=== PATIENT | female | born 1985 | race Caucasian/White ===

== ENCOUNTER 2018-09-06 10:07 | Emergency (ER) | payer SELFPAY ==
--- NOTE | 2018-09-06 11:21 | RAD REPORT ---
EXAM DESCRIPTION: RAD - Foot Right 3 View - 09/06/2018 11:12 am CLINICAL HISTORY: PAIN Trauma, pain COMPARISON: No comparisons FINDINGS: No acute fracture or dislocation is seen. Soft tissue swelling is seen involving the dorsu m of the forefoot.
--- NOTE | 2018-09-06 11:35 | ER ---
Nurse's Notes [facility] Name: Anne Ybarra Age: 32 yrs Sex: Female : 1985 Arrival Date: 09/06/2018 Time: 10:08 Bed 20 Private MD: Diagnosis: Pain in right foot Presentation: 09/06 10:26 Presenting complaint: Patient states: Reports right foot pain after kicking wooden aj table today this AM. 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 Patient moving constantly and speaking erratically. Transition of care: patient was not received from another setting of care. Onset of symptoms was September 06, 2018. Risk Assessment: Do you want to hurt yourself or someone else? Patient reports no desire to harm self or others. Initial Sepsis Screen: Does the patient meet any 2 criteria? No. Patient's initial sepsis screen is negative. Does the patient have a suspected source of infection? No. Patient's initial sepsis screen is negative. Care prior to arrival: None. 10:26 Method Of Arrival: Ambulatory 10:26 Acuity: DIOGO 3 Triage Assessment: 10:28 General: Appears in no apparent distress. comfortable, Behavior is anxious. Pain: aj Complains of pain in right foot. Neuro: Level of Consciousness is awake, alert, obeys commands, Oriented to person, place, time, situation, Appropriate for age. Respiratory: Airway is patent Respiratory effort is even, unlabored, Respiratory pattern is regular, symmetrical. Derm: Skin is intact, is healthy with good turgor, Skin is pink, warm \T\ dry. normal. Musculoskeletal: Circulation, motion, and sensation intact. Swelling present in right foot. Injury Description:. 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 - Ebola Screening: : Patient negative for fever greater than or equal to 101.5 degrees Fahrenheit, and additional compatible Ebola Virus Disease symptoms Patient denies exposure to infectious person Patient denies travel to an Ebola-affected area in the 21 days before illness onset No symptoms or risks identified at this time. - Social history:: Smoking status: Patient uses tobacco products, unknown amount. Screenin:22 Abuse screen: Denies threats or abuse. Denies injuries from another. Nutritional bp screening: No deficits noted. Tuberculosis screening: No symptoms or risk factors identified. Fall Risk None identified. Assessment: 11:20 General: SEE TRIAGE NOTE. bp 11:41 Reassessment: PT ELOPE WITHOUT D/C PAPERS. AMBULATORY WITH STEADY GAIT, LAST SEEN IN bp STABLE CONDITION. Vital Signs: 10:28 BP 125 / 77; Pulse 86; Resp 19; Temp 97.9; Pulse Ox 99% on R/A; Weight 59.42 kg; Height aj 5 ft. 4 in. (162.56 cm); 10:28 Body Mass Index 22.49 (59.42 kg, 162.56 cm) ED Course: 10:08 Patient arrived in ED. ds1 10:27 Triage completed. aj 10:28 Arm band placed on right wrist. Patient placed in waiting room, Patient notified of wait time. X-ray ordered. 11:11 X-ray completed. Portable x-ray completed in exam room. Patient tolerated procedure 1 well. 11:14 XRAY Foot RIGHT 3 View In Process Unspecified. EDMS 11:18 Memo Calderon PA is PHCP. cp 11:18 Memo Jean MD is Attending Physician. cp 11:20 Jimi Lawrence, SHEBA is Primary Nurse. bp 11:22 Patient has correct armband on for positive identification. Placed in gown. Bed in low bp position. Call light in reach. Side rails up X2. Pulse ox on. NIBP on. 11:41 No provider procedures requiring assistance completed. Patient did not have IV access bp during this emergency room visit. intact, bleeding controlled, No redness/swelling at site. Pressure dressing applied. Administered Medications: 11:41 Not Given (Patient Eloped): Ibuprofen 800 mg PO once bp Outcome: 11:34 Discharge ordered by . cp 11:42 Eloped from patient exam room, after seeing physician Time discovered patient gone: bp September 06, 2018 at 11:42 11:42 Condition: stable 11:54 Patient left the ED. bp Signatures: Dispatcher [employer] EDMS Roxanne Goyal RN RN Christine Masters 1 Latisha Laura ds1 Memo Calderon PA PA cp Howard, Jimi, RN RN bp
--- NOTE | 2018-09-06 11:35 | EDPHYS ---
Physician Documentation [facility] Name: Anne Ybarra Age: 32 yrs Sex: Female : 1985 Arrival Date: 09/06/2018 Time: 10:08 Bed 20 Private MD: LORENA Physician Memo Jean HPI: 09/06 11:25 This 32 yrs old Female presents to ER via Ambulatory with complaints of Foot cp Injury. 11:25 The patient presents with pain, that is acute. The complaints affect the dorsum of cp right foot. 11:25 Context: The problem was sustained at home, resulted from mis-step and striking cp furniture, the patient can partially bear weight, the patient is able to ambulate, with moderate difficulty. 11:25 Onset: The symptoms/episode began/occurred this morning. Associated signs and symptoms: cp Pertinent positives: swelling, Pertinent negatives calf tenderness, numbness, rash, warmth, weakness. Treatment prior to arrival includes: no previous treatment. 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 - Ebola Screening: : Patient negative for fever greater than or equal to 101.5 degrees Fahrenheit, and additional compatible Ebola Virus Disease symptoms Patient denies exposure to infectious person Patient denies travel to an Ebola-affected area in the 21 days before illness onset No symptoms or risks identified at this time. - Social history:: Smoking status: Patient uses tobacco products, unknown amount. ROS: 11:30 ENT: Negative for injury, pain, and discharge. cp 11:30 Constitutional: Negative for body aches, chills, fever, poor PO intake. 11:30 Neck: Negative for pain with movement, pain at rest, stiffness. cp 11:30 Cardiovascular: Negative for chest pain, edema, palpitations. 11:30 Respiratory: Negative for cough, shortness of breath, wheezing. 11:30 Abdomen/GI: Negative for abdominal pain, nausea, vomiting, and diarrhea. 11:30 MS/extremity: Positive for pain, swelling, tenderness, of the dorsum of right foot, Negative for decreased range of motion, deformity, paresthesias. 11:30 Skin: Negative for rash. 11:30 All other systems are negative. Exam: 11:32 Constitutional: The patient appears in no acute distress, alert, awake, non-toxic, well cp developed, well nourished. 11:32 Head/Face: Normocephalic, atraumatic. cp 11:32 Musculoskeletal/extremity: Extremities: grossly normal except: noted in the dorsum of right foot: pain, swelling, tenderness, There is no evidence of decreased ROM, deformity, Perfusion: the extremity is normally perfused throughout, Sensation intact. 11:32 Skin: cellulitis, is not appreciated, no rash present. Vital Signs: 10:28 BP 125 / 77; Pulse 86; Resp 19; Temp 97.9; Pulse Ox 99% on R/A; Weight 59.42 kg; Height aj 5 ft. 4 in. (162.56 cm); 10:28 Body Mass Index 22.49 (59.42 kg, 162.56 cm) aj MDM: 11:19 Patient medically screened. davin 11:34 Data reviewed: vital signs, nurses notes, radiologic studies, plain films. cp 11:34 Test interpretation: by ED physician or midlevel provider: plain radiologic studies. cp Counseling: I had a detailed discussion with the patient and/or guardian regarding: the historical points, exam findings, and any diagnostic results supporting the discharge/admit diagnosis, radiology results, to return to the emergency department if symptoms worsen or persist or if there are any questions or concerns that arise at home. Response to treatment: the patient's symptoms have mildly improved after treatment, and as a result, I will discharge patient. 09/06 10:30 Order name: XRAY Foot RIGHT 3 View aj Administered Medications: 11:41 Not Given (Patient Eloped): Ibuprofen 800 mg PO once bp Disposition: 09/07 11:41 Co-signature as Attending Physician, Memo Jean MD I agree with the assessment and [facility] plan of care. Disposition: 09/06/18 11:34 Discharged to Home. Impression: Pain in right foot. - Condition is Stable. - Discharge Instructions: RICE for Routine Care of Injuries, Foot Pain. - Prescriptions for Ibuprofen 800 mg Oral Tablet - take 1 tablet by ORAL route every 8 hours As needed take with food; 30 tablet. - Medication Reconciliation Form, Thank You Letter, Antibiotic Education, Prescription Opioid Use form. - Follow up: Private Physician; When: 5 - 6 days; Reason: Worsening of condition. - Problem is new. - Symptoms have improved. Signatures: Dispatcher [employer] EDRoxanne Appiah, RN RN Memo Barragan MD MD cha Page, Corey, PA PA cp Jimi Lawrence, RN RN bp Corrections: (The following items were deleted from the chart) 09/06 11:40 11:33 Crutches ordered. cp bp 11:40 11:33 Lee wrap-joint ordered. cp bp 11:54 11:34 09/06/2018 11:34 Discharged to Home. Impression: Pain in right foot. Condition is bp Stable. Forms are Medication Reconciliation Form, Thank You Letter, Antibiotic Education, Prescription Opioid Use. Follow up: Private Physician; When: 5 - 6 days; Reason: Worsening of condition. Problem is new. Symptoms have improved. cp
[2018-09-06 17:49] VITALS: BP 125/77; TEMP 97.9; O2SAT 99
== END 2018-09-06 11:54 | disposition home or self-care (01) ==
LOC: ER 10:07
DX: M79.671 Pain in right foot (principal); Z91.040 Latex allergy status
CPT/HCPCS: 99283

== ENCOUNTER 2020-01-05 12:32 | Emergency (ER) | payer OTHER, SELFPAY ==
[2020-01-05] MEDS ORDERED: NA CHLORIDE 0.9% 0 ML ONE (13:19)
[2020-01-05] MEDS ORDERED: ONDANSETRON 4 MG/2 ML VIAL ONE (13:19)
[2020-01-05] MEDS ORDERED: CEFTRIAXONE/SWI 1gm 0 GM/0 ML SYR ONE (13:19)
[2020-01-05 13:47] LABS: Urine Blood 2+ (NEG); Urine Glucose NEGATIVE (NEG); Urine Protein 2+ (NEG); Urine pH 5.5 (5.0-7.0)
--- NOTE | 2020-01-05 14:37 | RAD REPORT ---
EXAM DESCRIPTION: RAD - Chest Single View - 01/05/2020 2:30 pm CLINICAL HISTORY: Congestion;Fever;Cough Chest pain. COMPARISON: CHEST SINGLE VIEW dated 06/23/2011 FINDINGS: Portable technique limits examination quality. The lungs are grossly clear. The heart is normal in size. No displaced fractures. IMPRESSION: No acute intrathoracic process suspected.
--- NOTE | 2020-01-05 15:16 | EDPHYS ---
Physician Documentation [facility] Name: Anne Ybarra Age: 34 yrs Sex: Female : 1985 Arrival Date: 01/05/2020 Time: 12:33 Bed 18 Private MD: LORENA Physician Memo Jean HPI: 01/04 12:55 This 34 yrs old Female presents to ER via Ambulatory with complaints of davin Abdominal Pain, Nausea/Vomiting, Fever. 12:55 The patient presents to the emergency department with nausea, vomiting. Onset: The davin symptoms/episode began/occurred 2 day(s) ago. Possible causes: unknown. The symptoms are aggravated by nothing. The symptoms are alleviated by nothing. Associated signs and symptoms: Pertinent positives: fever. Severity of symptoms: At their worst the symptoms were mild in the emergency department the symptoms are unchanged. The patient has experienced similar episodes in the past, several times. Historical: - Allergies: 12:47 Latex, Natural Rubber; jd3 12:47 Macrobid; jd3 - Home Meds: 12:47 None [Active]; jd3 - PMHx: 12:47 chronic kidney infections; jd3 - PSHx: 12:47 Hysterectomy; jd3 - Immunization history:: Adult Immunizations up to date. - Social history:: Smoking status: unknown. ROS: 12:56 Constitutional: Negative for fever, chills, and weight loss, Eyes: Negative for injury, davin pain, redness, and discharge, Neck: Negative for injury, pain, and swelling, Cardiovascular: Negative for chest pain, palpitations, and edema, Abdomen/GI: Negative for abdominal pain, nausea, vomiting, diarrhea, and constipation, Back: Negative for injury and pain, : Negative for injury, bleeding, discharge, and swelling, MS/Extremity: Negative for injury and deformity, Skin: Negative for injury, rash, and discoloration, Neuro: Negative for headache, weakness, numbness, tingling, and seizure, Psych: Negative for depression, anxiety, suicide ideation, homicidal ideation, and hallucinations, Allergy/Immunology: Negative for hives, rash, and allergies, Endocrine: Negative for neck swelling, polydipsia, polyuria, polyphagia, and marked weight changes, Hematologic/Lymphatic: Negative for swollen nodes, abnormal bleeding, and unusual bruising. 12:56 ENT: Positive for rhinorrhea, sore throat. 12:56 Respiratory: Positive for cough. Exam: 12:56 Constitutional: This is a well developed, well nourished patient who is awake, alert, davin and in no acute distress. Head/Face: Normocephalic, atraumatic. Eyes: Pupils equal round and reactive to light, extra-ocular motions intact. Lids and lashes normal. Conjunctiva and sclera are non-icteric and not injected. Cornea within normal limits. Periorbital areas with no swelling, redness, or edema. Neck: Trachea midline, no thyromegaly or masses palpated, and no cervical lymphadenopathy. Supple, full range of motion without nuchal rigidity, or vertebral point tenderness. No Meningismus. Chest/axilla: Normal chest wall appearance and motion. Nontender with no deformity. No lesions are appreciated. Cardiovascular: Regular rate and rhythm with a normal S1 and S2. No gallops, murmurs, or rubs. Normal PMI, no JVD. No pulse deficits. Respiratory: Lungs have equal breath sounds bilaterally, clear to auscultation and percussion. No rales, rhonchi or wheezes noted. No increased work of breathing, no retractions or nasal flaring. Abdomen/GI: Soft, non-tender, with normal bowel sounds. No distension or tympany. No guarding or rebound. No evidence of tenderness throughout. Back: No spinal tenderness. No costovertebral tenderness. Full range of motion. Skin: Warm, dry with normal turgor. Normal color with no rashes, no lesions, and no evidence of cellulitis. MS/ Extremity: Pulses equal, no cyanosis. Neurovascular intact. Full, normal range of motion. Neuro: Awake and alert, GCS 15, oriented to person, place, time, and situation. Cranial nerves II-XII grossly intact. Motor strength 5/5 in all extremities. Sensory grossly intact. Cerebellar exam normal. Normal gait. Psych: Awake, alert, with orientation to person, place and time. Behavior, mood, and affect are within normal limits. 12:56 ENT: Posterior pharynx: Tonsils: are normal in appearance, Uvula: normal, midline, swelling, that is mild, erythema, that is mild, exudate, is not appreciated, peritonsillar mass, is not appreciated. 12:56 Neck: ROM/movement: is normal, no acute changes, Meningeal signs: are not present, Kernig's sign is negative, Brudzinski's sign is negative. Vital Signs: 12:47 BP 131 / 65; Pulse 94; Resp 17 S; Temp 98.3(O); Pulse Ox 100% on R/A; Weight 57.61 kg jd3 (R); Height 5 ft. 4 in. (162.56 cm) (R); Pain 7/10; 14:54 BP 112 / 69; Pulse 70; Resp 15; Temp 98.1(O); Pulse Ox 100% on R/A; mh5 12:47 Body Mass Index 21.80 (57.61 kg, 162.56 cm) jd3 MDM: 12:36 Patient medically screened. davin 13:01 Antibiotic administration: Not indicated. Differential diagnosis: gastritis. Data davin reviewed: vital signs, nurses notes, lab test result(s), radiologic studies, plain films. Data interpreted: nurse monitoring: rate is 94 beats/min, rhythm is regular, Pulse oximetry: on room air is 100 %. Test interpretation: by ED physician or midlevel provider: plain radiologic studies. Counseling: I had a detailed discussion with the patient and/or guardian regarding: the historical points, exam findings, and any diagnostic results supporting the discharge/admit diagnosis, lab results, radiology results. 01/04 12:55 Order name: Urine Culture [facility] 01/04 12:55 Order name: Flu; Complete Time: 14:18 [facility] 01/04 12:55 Order name: COVID-19 [facility] 01/04 12:55 Order name: Strep; Complete Time: 13:51 [facility] 01/04 12:55 Order name: Urine Dipstick-Ancillary (obtain specimen); Complete Time: 15:28 [facility] 01/04 12:55 Order name: Chest Single View XRAY; Complete Time: 15:01 davin 01/04 13:31 Order name: Urine Dipstick--Ancillary (enter results); Complete Time: 13:48 eb 01/04 13:31 Order name: Urine --Ancillary (enter results); Complete Time: 13:48 eb 01/04 13:51 Order name: Throat Culture [facility] 01/04 12:55 Order name: Urine Test (obtain specimen); Complete Time: 15:17 davin 01/04 15:16 Order name: PO challenge; Complete Time: 19:23 [facility] Administered Medications: 15:17 Not Given ( cancelled): NS 0.9% 1000 ml IV at 1 bolus Per protocol; 1000 mL bolus ah 15:17 Not Given ( cancelled): Rocephin 1 grams IV at per protocol once; Given slow IV push ah per pharmacy instructions 19:23 Not Given ( cancelled): Zofran (Ondansetron) 4 mg IVP once; over 2 minutes ah Disposition: 01/05/20 15:16 Discharged to Home. Impression: Vomiting, Acute upper respiratory infection, unspecified, Anxiety disorder, unspecified. - Condition is Stable. - Discharge Instructions: Fever, Adult, Upper Respiratory Infection, Adult, Cool Mist Vaporizer, Nausea and Vomiting, Adult, Ztnk-pv-Ciow, Upper Respiratory Infection, Adult, Uggw-eh-Gust, Cough, Adult, Fever, Adult, Jiao-co-Bwsa. - Prescriptions for Amoxicillin 500 mg Oral Capsule - take 1 capsule by ORAL route every 8 hours for 10 days; 30 tablet. Zofran 4 mg Oral Tablet - take 1 tablet by ORAL route every 12 hours As needed; 20 tablet. - Medication Reconciliation Form, Thank You Letter, Antibiotic Education, Prescription Opioid Use form. - Follow up: Private Physician; When: 2 - 3 days; Reason: Recheck today's complaints, Continuance of care, Re-evaluation by your physician. - Problem is new. - Symptoms have improved. Signatures: Dispatcher [employer] EDMS Memo Jean MD MD cha Davies, Jonathon, RN RN jd3 Harris, Amy, RN RN ah Corrections: (The following items were deleted from the chart) 15:18 12:56 CBC+H.LAB.BRZ ordered. [facility] EDMS 15:18 12:56 COMPREHENSIVE METABOLIC PANEL+C.LAB.BRZ ordered. [facility] EDMS 15:54 15:16 01/05/2020 15:16 Discharged to Home. Impression: Vomiting; Acute upper ah respiratory infection, unspecified; Anxiety disorder, unspecified. Condition is Stable. Discharge Instructions: Upper Respiratory Infection, Adult, Cool Mist Vaporizer, Nausea and Vomiting, Adult, Sqyu-tm-[id number], Upper Respiratory Infection, Adult, Ijrr-iv-Olln, Cough, Adult, Fever, Adult, Fever, Adult, Gcno-tu-Wzaa. Prescriptions for Amoxicillin 500 mg Oral Capsule - take 1 capsule by ORAL route every 8 hours for 10 days; 30 tablet, Zofran 4 mg Oral Tablet - take 1 tablet by ORAL route every 12 hours As needed; 20 tablet. and Forms are Medication Reconciliation Form, Thank You Letter, Antibiotic Education, Prescription Opioid Use. Follow up: Private Physician; When: 2 - 3 days; Reason: Recheck today's complaints, Continuance of care, Re-evaluation by your physician. Problem is new. Symptoms have improved. davin
--- NOTE | 2020-01-05 15:16 | ER ---
Nurse's Notes [facility] Name: Anne Ybarra Age: 34 yrs Sex: Female : 1985 Arrival Date: 01/05/2020 Time: 12:33 Bed 18 Private MD: Diagnosis: Vomiting;Acute upper respiratory infection, unspecified;Anxiety disorder, unspecified Presentation: 01/04 12:43 Chief complaint: Patient states: "I moved to [place] yesterday so I thought it was the [facility] climate change, but today I have had this migraine I can't get rid of, I lost my voice. I am also having this nausea and my stomach just feels yucky and my anxiety is just making everything worse because I just have a lot going on right now with my family being sick all this stuff.". Coronavirus screen: fatigue, headache, nausea, sore throat, Client presents with at least one sign or symptom that may indicate coronavirus-19. Ebola Screen: Patient negative for fever greater than or equal to 101.5 degrees Fahrenheit, and additional compatible Ebola Virus Disease symptoms. Initial Sepsis Screen: Does the patient meet any 2 criteria? No. Patient's initial sepsis screen is negative. Does the patient have a suspected source of infection? No. Patient's initial sepsis screen is negative. Risk Assessment: Do you want to hurt yourself or someone else? Patient reports no desire to harm self or others. Onset of symptoms was January 05, 2020. 12:43 Method Of Arrival: Ambulatory j 12:43 Acuity: DIOGO 3 jd3 Historical: - Allergies: 12:47 Latex, Natural Rubber; jd3 12:47 Macrobid; jd3 - Home Meds: 12:47 None [Active]; jd3 - PMHx: 12:47 chronic kidney infections; jd3 - PSHx: 12:47 Hysterectomy; jd3 - Immunization history:: Adult Immunizations up to date. - Social history:: Smoking status: unknown. Screenin:52 Abuse screen: Denies threats or abuse. Nutritional screening: No deficits noted. Tuberculosis screening: No symptoms or risk factors identified. Fall Risk None identified. Assessment: 12:50 General: Appears uncomfortable, Behavior is cooperative, anxious, crying. Pain: Complains of pain in abdomen. Neuro: Level of Consciousness is awake, alert, obeys commands, Oriented to person, place, time, situation. Neuro: Reports headache. Cardiovascular: Capillary refill < 3 seconds Patient's skin is warm and dry. Respiratory: Airway is patent Respiratory effort is even, unlabored, Respiratory pattern is regular, symmetrical. GI: Reports nausea, vomiting. GI: Bowel sounds present X 4 quads. Abd is non tender. : No signs and/or symptoms were reported regarding the genitourinary system. Derm: Skin is intact, is healthy with good turgor. 14:45 Reassessment: Patient is alert, oriented x 3, equal unlabored respirations, skin aa5 warm/dry/pink. 15:00 Reassessment: Pt is hard stick, MD was notified. . aa5 Vital Signs: 12:47 BP 131 / 65; Pulse 94; Resp 17 S; Temp 98.3(O); Pulse Ox 100% on R/A; Weight 57.61 kg jd3 (R); Height 5 ft. 4 in. (162.56 cm) (R); Pain 7/10; 14:54 BP 112 / 69; Pulse 70; Resp 15; Temp 98.1(O); Pulse Ox 100% on R/A; mh5 12:47 Body Mass Index 21.80 (57.61 kg, 162.56 cm) jd3 ED Course: 12:33 Patient arrived in ED. ag5 12:35 Memo Jean MD is Attending Physician. davin 12:37 Sasha King, RN is Primary Nurse. 12:46 Triage completed. jd3 12:47 Arm band placed on. jd3 12:50 Missed attempt(s): 20 gauge in right antecubital area. 22 gauge in left hand. mh5 14:30 Chest Single View XRAY In Process Unspecified. EDMS 14:40 Missed attempt(s): 24 gauge in left forearm. Bleeding controlled, band aid applied, aa5 catheter tip intact. 14:45 Missed attempt(s): 24 gauge in left hand. Bleeding controlled, band aid applied, aa5 catheter tip intact. 14:53 Patient has correct armband on for positive identification. Placed in gown. Bed in low mh5 position. Call light in reach. Side rails up X 1. Adult w/ patient. Warm blanket given. Pulse ox on. NIBP on. 15:00 No provider procedures requiring assistance completed. Patient did not have IV access during this emergency room visit. Administered Medications: 15:17 Not Given ( cancelled): NS 0.9% 1000 ml IV at 1 bolus Per protocol; 1000 mL bolus ah 15:17 Not Given ( cancelled): Rocephin 1 grams IV at per protocol once; Given slow IV push per pharmacy instructions 19:23 Not Given ( cancelled): Zofran (Ondansetron) 4 mg IVP once; over 2 minutes Outcome: 15:16 Discharge ordered by . davin 15:20 Discharged to home ambulatory. 15:20 Condition: good 15:20 Discharge instructions given to patient, Instructed on discharge instructions, follow up and referral plans. Demonstrated understanding of instructions, follow-up care, medications, Prescriptions given X 2. 15:54 Patient left the ED. Addendum: 01/08/2020 13:28 Addendum: COVID-19 Result: Negative result given to RN to notify pt. Attempted to i w contact pt regarding negative COVID-19 swab results. Other: phone number is wrong number. Signatures: Dispatcher [employer] EDMemo Lemus MD MD cha Williams, Irene, RN RN iw Calderon, Audri RN RN latoya5 Emiliana Shelton 5 Dwayne Elizabeth RN RN jd3 Gaskin, Ajare ag5 Sasha King RN RN
[2020-01-05 16:12] VITALS: O2SAT 100
[2020-01-05 16:13] VITALS: BP 112/69; TEMP 98.1
--- OUTSIDE RECORDS SUMMARY | 2020-01-09 00:43 | XMS REPORT | Summary of Care ---
:1985 Author Organization [facility] Address [address] [place] [address] Care Team Providers Name Role Phone Miguel Gallo MD Primary Care Provider Reason for Visit Reason Comments Rx Concern/Question Encounter Details Date Type Department Care Team Description 11/13/2019 Telephone [facility] Family Rosa Gallo MD Rx Concern/Question Medicine - [address] [place] [phone] Allergies Active Allergy Reactions Severity Noted Date Comments Latex Rash 11/21/2018 documented as of this encounter (statuses as of 11/13/2019) Medications Medication Sig Dispensed Refills Start Date End Date Status metoprolol succinate Take 1 tablet by 30 tablet 5 01/21/2019 Active XL 25 mg 24 hr mouth daily. tabletIndications: Anxiety ondansetron 4 mg Take 1 tablet by 20 tablet 0 06/12/2019 Active tabletIndications: mouth every 6 Kidney stone (six) hours as needed for Nausea and Vomiting (N/V). HYDROcodone-acetaminop Take 1 tablet by 30 tablet 0 06/12/2019 Active hen 5-325 mg mouth every 6 tabletIndications: (six) hours as Kidney stone needed for Pain (scale 4-6). cefUROXime 500 mg Take 1 tablet by 20 tablet 0 08/22/2019 Active tabletIndications: mouth 2 (two) Kidney stone times daily. ALPRAZolam 2 mg Take 1 tablet by 90 tablet 1 09/16/2019 Active tabletIndications: mouth 3 (three) Anxiety times daily as needed for Sleep. 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 Cocaine dependence, episodic 11/05/2006 Cannabis dependence, continuous 11/05/2006 Overview: Daily use Suicidal ideation 11/05/2006 documented as of this encounter (statuses as of 11/13/2019) Social History Tobacco Use Types Packs/Day Years Used Date Current Every Day Smoker Smokeless Tobacco: Never Used Alcohol Use Drinks/Week oz/Week Comments Yes Sex Assigned at Date Recorded Not on file documented as of this encounter Last Filed Vital Signs Not on filedocumented in this encounter Miscellaneous Notes Telephone Encounter - Tiffanie Lin LVN - 11/13/2019 4:40 PM CDTCalled patient no answer left message for her to call me back tomorrow. elephone Encounter - Tiffanie Lin LVN - 11/13/2019 8:49 AM CDTLeft message on patient voicemail to callback with [facility] location. elephone Encounter - Miguel Gallo MD - 11/13/2019 8:33 AM CDT [facility] where? elephone Encounter - Tiffanie Lin LVN - 11/13/2019 8:25 AM CDT HYDROcodone-acetaminophen 5-325 mg tablet 30 tablet 0 06/12/2019 [facility] [address] [place] [address] T H APPOINTMENT 08/22/2019 elephone Encounter - Janet Leos - 11/13/2019 7:52 AM CDT Patient is calling and is requesting for her medication to be sent to [facility], please call patient back in regards to this encounter, patient stated she is going out of town and for a deathin the family and is requesting to get this done before she is having to leave. documented in this encounter Plan of Treatment Health Maintenance Due Date Last Done Comments VARICELLA VACCINES (1 of 2 - 2-dose 10/28/1987 childhood series) PNEUMOCOCCAL 0-64 YEARS COMBINED SERIES (1 1992 of 1 - PPSV23) DTaP,Tdap,and Td Vaccines (1 - Tdap) 2005 PAP SMEAR 10/28/2007 Depression Screening 11/22/2019 11/21/2018, 11/21/2018 INFLUENZA VACCINE (#1) 2019 documented as of this encounter Results Not on filedocumented in this encounter Visit Diagnoses Diagnosis Kidney stone Calculus of kidney documented in this encounter
--- OUTSIDE RECORDS SUMMARY | 2020-01-09 00:43 | XMS REPORT | Summary of Care ---
:1985 Author Organization [facility] Address [address] [place] [address] Care Team Providers Name Role Phone Miguel Gallo MD Primary Care Provider Reason for Visit Reason Comments Rx Concern/Question Encounter Details Date Type Department Care Team Description 11/13/2019 Telephone [facility] Family Rosa Gallo MD Rx Concern/Question Medicine - [address] [place] [phone] Allergies Active Allergy Reactions Severity Noted Date [...] R/O Bipolar d/o, MDD ICD10 Diagnosis 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 elephone Encounter - Tiffanie Lin LVN - 11/13/2019 8:25 AM CDT HYDROcodone-acetaminophen 5-325 mg tablet 30 tablet 0 06/12/2019 [facility] [address] [place] [address] T H APPOINTMENT 08/22/2019 elephone Encounter - [...]
--- OUTSIDE RECORDS SUMMARY | 2020-01-09 00:43 | XMS REPORT | Summary of Care ---
:1985 Author Organization [facility] Address [address] [place] [address] Care Team Providers Name Role Phone Miguel Gallo MD Primary Care Provider Reason for Visit Reason Comments Rx Concern/Question Encounter Details Date Type Department Care Team Description 11/13/2019 Telephone [facility] Family Rosa Gallo MD Rx Concern/Question Medicine - [address] [place] [address] [phone] Allergies Active Allergy Reactions Severity Noted Date [...] R/O Bipolar d/o, MDD ICD10 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 elephone Encounter - Tiffanie Lin LVN - 11/13/2019 8:25 AM CDT HYDROcodone-acetaminophen 5-325 mg tablet 30 tablet 0 06/12/2019 [facility] [address] [place] [address] T H APPOINTMENT 08/22/2019 elephone Encounter - [...]
--- OUTSIDE RECORDS SUMMARY | 2020-01-09 00:43 | XMS REPORT | Continuity of Care Document ---
:1985 Author Organization [facility] t Address [address] [place] [address] Care Team Providers Name Role Phone Sabino MISHRA Attending Clinician Payers Payer Name Policy Type Policy Number Effective Date Expiration Date S ource Problems This patient has no known problems. Allergies, Adverse Reactions, Alerts Allergy Allergy Status Severity Reaction(s) Onset Inactive Treating Comm ents Source Name Type Date Date Clinician No Known DA Active U 2016-04 CIARAN Allergie 0-17 Pearlan s 00:00: d 00 [facility] Medications This patient has no known medications. Procedures This patient has no known procedures. Encounters Start End Encounter Admission Attending Care Care Encounter Source Date/Time Date/Time Type Type Clinicians Facility Department ID 2019-12-10 2019-12-10 [facility] [id number] 00:00:00 00:00:00 [place] [id number] [place] [id number] Jennifer [id number] nal [address] 2019-12-03 2019-12-03 [facility] [id number] 00:00:00 00:00:00 [facility] [id number] [place] [id number] Jennifer [id number] nal [address] 2019-11-19 2019-11-19 Emergency E MHBL MHBL [id number] MHBL 03:02:00 03:02:00 2019-09-21 2019-09-21 Emergency E MHBL MHBL [id number] MHBL 15:36:00 15:36:00 2019-06-13 2019-06-13 Emergency E [facility]BL MHBL [id number] MHBL 17:05:00 17:05:00 2019-06-09 2019-06-09 Outpatient E MHSE MED [id number] MH 11:31:00 [facility]:31:[facility] 2019-06-05 2019-06-05 Emergency E MHBL MHBL [id number] MHBL 01:07:00 01:07:00 Results This patient has no known results.
--- OUTSIDE RECORDS SUMMARY | 2020-01-09 00:44 | XMS REPORT | Summary of Care ---
:1985 Author Organization [facility] Address [address] [place] [address] Care Team Providers Name Role Phone Miguel Gallo MD Primary Care Provider Reason for Visit Reason Comments Rx Concern/Question Encounter Details Date Type Department Care Team Description 12/03/2019 Telephone [facility] Family Rosa Gallo MD Rx Concern/Question Medicine - [address] [place] [phone] [phone] Allergies Active Allergy Reactions Severity Noted Date Comments Latex Rash 11/21/2018 documented as of this encounter (statuses as of 12/03/2019) Medications Medication Sig Dispensed Refills Start Date [...] Take 1 tablet by 90 tablet 1 11/26/2019 Active tabletIndications: mouth 3 (three) Anxiety times daily as needed for Sleep. 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 Cocaine dependence, episodic 11/05/2006 Cannabis dependence, continuous 11/05/2006 Overview: Daily use Suicidal ideation 11/05/2006 documented as of this encounter (statuses as of 12/03/2019) Social History Tobacco Use Types Packs/Day Years Used Date Current Every Day Smoker Smokeless Tobacco: Never Used Alcohol Use Drinks/Week oz/Week Comments Yes Sex Assigned at Date Recorded Not on file documented as of this encounter Last Filed Vital Signs Not on filedocumented in this encounter Miscellaneous Notes Telephone Encounter - Tiffanie Lin LVN - 12/03/2019 3:05 PM CDTNotified patient that the medication has been sent out on 11/26/[address] [facility], she will call them. Telephone Encounter - Janet Leos - 12/03/2019 2:49 PM CDTPatient is calling and is requesting an update on encounter from 11/27, please call patient back in regards to this encounter. documented in this encounter Plan of Treatment Health Maintenance Due Date Last Done Comments VARICELLA VACCINES (1 of 2 - 2-dose childhood series) 10/28/1987 PNEUMOCOCCAL 0-64 YEARS COMBINED SERIES (1 of 1 - 1992 PPSV23) Depression Screening 1998 DTaP,Tdap,and Td Vaccines (1 - Tdap) 2005 PAP SMEAR 10/28/2007 INFLUENZA VACCINE (#1) 2019 documented as of this encounter Results Not on filedocumented in this encounter
--- OUTSIDE RECORDS SUMMARY | 2020-01-09 00:44 | XMS REPORT | Summary of Care ---
:1985 Author Organization [facility] Address [address] [place] [address] Care Team Providers Name Role Phone Miguel Gallo MD Primary Care Provider Reason for Visit Reason Comments Rx Concern/Question Encounter Details Date Type Department Care Team Description 11/13/2019 Telephone [facility] Family Rosa Gallo MD Rx Concern/Question Medicine - [address] [place] [phone] [phone] Allergies Active Allergy Reactions Severity Noted Date Comments Latex Rash 11/21/2018 documented as of this encounter (statuses as of 11/14/2019) Medications Medication Sig Dispensed Refills Start Date [...] as of this encounter (statuses as of 11/14/2019) Active Problems Problem Noted Date Bilateral flank pain 06/11/2019 Dysuria 06/11/2019 Dark brown-colored urine 06/11/2019 Hematuria, unspecified type 06/11/2019 Depressive disorder 11/05/2006 Overview: 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, but R/O Bipolar d/o, MDD ICD10 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 Cocaine dependence, episodic 11/05/2006 Cannabis dependence, continuous 11/05/2006 Overview: Daily use Suicidal ideation 11/05/2006 documented as of this encounter (statuses as of 11/14/2019) Social History Tobacco Use Types Packs/Day Years Used Date Current Every Day Smoker Smokeless Tobacco: Never Used Alcohol Use Drinks/Week oz/Week Comments Yes Sex Assigned at Date Recorded Not on file documented as of this encounter Last Filed Vital Signs Not on filedocumented in this encounter Miscellaneous Notes Telephone Encounter - Tiffanie Lin LVN - 11/14/2019 3:10 PM CDTI called the patient again, phone goes directly to voicemail. She has not returned my calls from yesterday therefore I am closing this encounter until she calls back, needed to know what [facility] location she was wanting medication sent to. elephone Encounter - Tiffanie Lin LVN - [...] 5-325 mg tablet 30 tablet 0 06/12/[facility] [address] [place] [address] T H APPOINTMENT 08/22/2019 elephone Encounter - [...]
--- OUTSIDE RECORDS SUMMARY | 2020-01-09 00:44 | XMS REPORT | Summary of Care ---
:1985 Author Organization [facility] Address [address] [place] [address] Care Team Providers Name Role Phone Miguel Gallo MD Primary Care Provider Reason for Visit Reason Comments Refill Request refill for medication Encounter Details Date Type Department Care Team Description 11/28/2019 Telephone [facility] Pediatric Junie Gallo MD Refill Request (refill and Adult Primary [address] for medication) Care- [place] [phone], [address] [place] [address] Allergies Active Allergy Reactions Severity Noted Date Comments Latex Rash 11/21/2018 documented as of this encounter (statuses as of 11/29/2019) Medications Medication Sig Dispensed Refills Start Date [...] as of this encounter (statuses as of 11/29/2019) Active Problems Problem Noted Date Bilateral flank pain 06/11/2019 Dysuria 06/11/2019 Dark brown-colored urine 06/11/2019 Hematuria, unspecified type 06/11/2019 Depressive disorder 11/05/2006 Overview: 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, but R/O Bipolar d/o, MDD ICD10 Diagnosis 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 Telephone Encounter - Mitchell Suarez - 11/28/2019 9:40 AM CDTAnne Ybarra is a 34 year old female Patient requesting refill on following medication ALPRAZolam 2 mg tablet [facility] [address] [place], [place] [phone] Please assist documented in this encounter Plan of Treatment [...]
--- OUTSIDE RECORDS SUMMARY | 2020-01-09 00:44 | XMS REPORT | Summary of Care ---
:1985 Author Organization [facility] Address [address] [place] [address] Care Team Providers Name Role Phone Miguel Gallo MD Primary Care Provider Reason for Visit Reason Comments Refill Request Encounter Details Date Type Department Care Team Description 11/26/2019 Refill [facility] Miguel Max MD Refill Request - [address] [place] [address] [place] [address] [phone] Allergies Active Allergy Reactions Severity Noted Date Comments Latex Rash 11/21/2018 documented as of this encounter (statuses as of 11/26/2019) Medications Medication Sig Dispensed Refills Start Date End Date Status metoprolol Take 1 tablet 30 tablet 5 01/21/2019 Acti ve succinate XL 25 by mouth mg 24 hr daily. tabletIndications : Anxiety ondansetron 4 mg Take 1 tablet 20 tablet 0 06/12/2019 Active tabletIndications by mouth every : Kidney stone 6 (six) hours as needed for Nausea and Vomiting (N/V). HYDROcodone-aceta Take 1 tablet 30 tablet 0 06/12/2019 Active minophen 5-325 mg by mouth every tabletIndications 6 (six) hours : Kidney stone as needed for Pain (scale 4-6). cefUROXime 500 mg Take 1 tablet 20 tablet 0 08/22/2019 Active tabletIndications by mouth 2 : Kidney stone (two) times daily. ALPRAZolam 2 mg Take 1 tablet 90 tablet 1 11/26/2019 Active tabletIndications by mouth 3 : Anxiety (three) times daily as needed for Sleep. ALPRAZolam 2 mg Take 1 tablet 90 tablet 1 09/16/2019 Discontinued tabletIndications by mouth 3 0 ( Reorder) : Anxiety (three) times daily as needed for Sleep. 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 Cocaine dependence, episodic 11/05/2006 Cannabis dependence, continuous 11/05/2006 Overview: Daily use Suicidal ideation 11/05/2006 documented as of this encounter (statuses as of 11/26/2019) Social History Tobacco Use Types Packs/Day Years Used Date Current Every Day Smoker Smokeless Tobacco: Never Used Alcohol Use Drinks/Week oz/Week Comments Yes Sex Assigned at Date Recorded Not on file documented as of this encounter Last Filed Vital Signs Not on filedocumented in this encounter Miscellaneous Notes Telephone Encounter - Tiffanie Lin LVN - 11/26/2019 2:08 PM CDT 2 months ago (09/16/2019) ALPRAZolam [address] [facility] [address] [place] [address] T H APPOINTMENT 08/22/2019 elephone Encounter - Mar De Dios - 11/26/2019 1:47 PM CDTPt is requesting medication one week early. documented in this encounter Plan of Treatment [...] filedocumented in this encounter Visit Diagnoses Diagnosis Anxiety Anxiety state, unspecified documented in this encounter
--- OUTSIDE RECORDS SUMMARY | 2020-01-09 00:44 | XMS REPORT | Summary of Care ---
:1985 Author Organization [facility] Address [address] [place] [address] Care Team Providers Name Role Phone Miguel Gallo MD Primary Care Provider Reason for Visit Reason Comments Refill Request refill for medication Encounter Details Date Type Department Care Team Description 11/28/2019 Telephone [facility] Pediatric Junie Gallo MD Refill Request (refill and Adult Primary [address] for medication) Care- [place] [phone], [address] [place] [address] Allergies Active Allergy Reactions Severity [...] R/O Bipolar d/o, MDD ICD10 Diagnosis 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 elephone Encounter - Paige Vazquez MA - 11/29/2019 8:49 AM CDTRerouting. Telephone Encounter - Mitchell Suarez - 11/28/2019 9:40 AM CDTAnne Ybarra is a 34 year old female Patient requesting refill on following medication ALPRAZolam 2 mg tablet [facility] [address] [place], [place] [phone] Please assist documented in this encounter Plan [...]
--- OUTSIDE RECORDS SUMMARY | 2020-01-09 00:44 | XMS REPORT | Summary of Care ---
:1985 Author Organization [facility] Address [address] [place] [address] Care Team Providers Name Role Phone Miguel Gallo MD Primary Care Provider Reason for Visit Reason Comments Refill Request refill for medication Encounter Details Date Type Department Care Team Description 11/28/2019 Refill [facility] Pediatric Junie Gallo MD Refill Request (refill and Adult Primary Care- [facility] [address] for medication) [place] [address], [address] [place] [address] [phone] Allergies Active Allergy Reactions Severity Noted Date [...] R/O Bipolar d/o, MDD ICD10 Diagnosis 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 Patient is requesting this medication to [facility] in [place]. elephone Encounter - Tiffanie Lin LVN - 11/29/2019 10:00 AM CDTCalled the pharmacy and they received the refill on 11/26/2019 but it is too soon to refill, she is currently on day 16 of a 30 day script. elephone Encounter - Paige Vazquez MA - 11/29/2019 8:49 AM CDTRerouting. Telephone Encounter - Mitchell Suarez - 11/28/2019 9:40 AM CDTAnne Amada is a 34 year old female Patient requesting refill on following medication ALPRAZolam 2 mg tablet [place] [phone] Please assist documented in this encounter Plan [...]
--- OUTSIDE RECORDS SUMMARY | 2020-01-09 00:45 | XMS REPORT | Summary of Care ---
:1985 Author Organization [facility] Address [address] [place] [address] Care Team Providers Name Role Phone Miguel Gallo MD Primary Care Provider Reason for Visit Reason Comments Rx Concern/Question Encounter Details Date Type Department Care Team Description 12/03/2019 Telephone [facility] Family Rosa Gallo MD Rx Concern/Question Medicine - [address] [place] [phone] Allergies Active Allergy Reactions Severity Noted Date Comments Latex Rash 11/21/2018 documented as of this encounter (statuses as of 12/04/2019) Medications Medication Sig Dispensed Refills Start Date [...] as of this encounter (statuses as of 12/04/2019) Active Problems Problem Noted Date Bilateral flank pain 06/11/2019 Dysuria 06/11/2019 Dark brown-colored urine 06/11/2019 Hematuria, unspecified type 06/11/2019 Depressive disorder 11/05/2006 Overview: 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, but R/O Bipolar d/o, MDD ICD10 Diagnosis 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 Cocaine dependence, episodic 11/05/2006 Cannabis dependence, continuous 11/05/2006 Overview: Daily use Suicidal ideation 11/05/2006 documented as of this encounter (statuses as of 12/04/2019) Social History Tobacco Use Types Packs/Day Years Used Date Current Every Day Smoker Smokeless Tobacco: Never Used Alcohol Use Drinks/Week oz/Week Comments Yes Sex Assigned at Date Recorded Not on file documented as of this encounter Last Filed Vital Signs Not on filedocumented in this encounter Miscellaneous Notes Telephone Encounter - Tiffanie Lin LVN - 12/04/2019 10:46 AM CDTPatient notified and verbalized understanding. elephone Encounter - Tiffanie Lin LVN - 12/04/2019 9:17 AM CDTCalled patient to advise cannot refill until next week, there was no answer, will try again. elephone Encounter - Miguel Gallo MD - 12/04/2019 7:15 AM CDTCannot refill till next week Telephone Encounter - Tiffanie Lin LVN - 12/03/2019 3:46 PM CDTThe last refill on the Alprazolam was on 11/13/2019 with a 30 day supply, the next refill is not due until 12/14/2019. She says that Dr Gallo approved an early refill on 11/26/2019 and that [facility] will not fill it so she wants it sent to [facility] [place] instead they told her they will fill it. Please advise. elephone Encounter - Laure Cooper - 12/03/2019 3:11 PM CDTPatient is calling stating that [facility] will not fill her medication that was on 11/26/19, but is stating that [facility] in [place] will fill the medication. Patient is requesting for the medication to be sent as soon as possible. documented in this encounter Plan of Treatment [...]
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
--- OUTSIDE RECORDS SUMMARY | 2020-01-09 00:45 | XMS REPORT | Summary of Care ---
:1985 Author Organization [facility] Address [address] [place] [address] Care Team Providers Name Role Phone Miguel Gallo MD Primary Care Provider Reason for Visit Reason Comments Rx Concern/Question Encounter Details Date Type Department Care Team Description 12/03/2019 Telephone [facility] Family Rosa Gallo MD Rx Concern/Question Medicine - [address] [place] [phone] Allergies Active Allergy Reactions Severity Noted Date [...] R/O Bipolar d/o, MDD ICD10 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 Please advise. elephone Encounter - Laure Cooper - 12/03/2019 3:11 PM CDTPatient is calling stating that [facility] will not fill her medication that was on 11/26/19, but is stating that [facility] in [place] will fill the medication. Patient is requesting [...]
== END 2020-01-05 15:54 | disposition home or self-care (01) ==
LOC: ER 12:32
DX: J06.9 Acute upper respiratory infection, unspecified (principal); Z20.828 Contact with and (suspected) exposure to other viral communicable diseases; F41.9 Anxiety disorder, unspecified; Z88.1 Allergy status to other antibiotic agents; Z91.040 Latex allergy status; Z91.048 Other nonmedicinal substance allergy status
CPT/HCPCS: 87070; 87088; 87086; 81025; 87081; 81003; 87804 ×2; 71045; 99283; U0002; J0696; J2405; J7030

== ENCOUNTER 2020-06-01 13:28 | Emergency (ER) | payer OTHER, SELFPAY ==
--- OUTSIDE RECORDS SUMMARY | 2020-06-01 13:32 | XMS REPORT | Continuity of Care Document ---
:1985 Author Organization [facility] t Address [address] [place] [address] Care Team Providers Name Role Phone Sabino MISHRA Attending Clinician Chau Welch Attending Clinician Payers Payer Name Policy Type Policy Number Effective Date Expiration Date S ource Problems This patient has no known problems. Allergies, Adverse Reactions, Alerts Allergy Allergy Status Severity Reaction(s) Onset Inactive Treating Comm ents Source Name Type Date Date Clinician No Known DA Active U 2016-04 [facility] Allergie 0-17 [place] s 00:00: d 00 [facility] Medications This patient has no known medications. Procedures This patient has no known procedures. Encounters Start End Encounter Admission Attending Care Care Encounter Source Date/Time Date/Time Type Type Clinicians Facility Department ID 2020-05-30 2020-05-30 Emergency E [facility] [id number] [facility] 18:19:00 18:19:00 2020-05-30 2020-05-30 Emergency E [facility] [id number] [facility] 05:06:00 05:06:00 2020-05-25 2020-05-25 Refill SONAL Gallo [id number] 00:00:00 00:00:00 [facility] [id number] [place] [id number] Profnaif [phone] [place] [address] [address] 2020-05-22 2020-05-22 [facility] [id number] 00:00:00 00:00:00 [facility] [id number] [place] [id number] Professio [phone] [place] [address] [address] One 2020-04-10 2020-04-10 [facility] [id number] 00:00:00 00:00:00 [facility] [id number] [place] [id number] Professio [phone] [place] [address] [address] One 2020-04-08 2020-04-08 [facility] [id number] 00:00:00 00:00:00 [facility] [id number] [place] [id number] Professio [phone] [place] [address] [address] One 2020-04-06 2020-04-06 [facility] [id number] 00:00:00 00:00:00 [facility] [id number] [place] [id number] Professio [phone] [place] [address] Office [facility] One 2020-03-11 2020-03-11 [facility] [id number] 11:01:33 11:46:43 Visit Carlyn Boland [id number] [place] [id number] Professio [phone] [address] 2019-11-19 2019-11-19 Emergency E [facility] [id number] MHBL 03:02:00 03:02:00 2019-09-21 2019-09-21 Emergency E [facility] [id number] MHBL 15:36:00 15:36:00 2019-06-13 2019-06-13 Emergency E [facility] [id number] MHBL 17:05:00 17:05:00 2019-06-09 2019-06-09 Outpatient E [facility] MED [id number] MH 11:31:00 11:31:00 Brunilda singer [facility] l 2019-06-05 2019-06-05 Emergency E BL [facility] [id number] [facility] 01:07:00 01:07:00 Results This patient has no known results.
[2020-06-01] MEDS ORDERED: METOCLOPRAMIDE 10 MG/2mL INJ ONE (14:17)
[2020-06-01] MEDS ORDERED: NA CHLORIDE 0.9% 1,000 ML ONE (14:17)
[2020-06-01] MEDS ORDERED: KETOROLAC 30 MG/ML INJ ONE (14:17)
[2020-06-01] MEDS ORDERED: DIPHENHYDRAMINE 50 MG/ML VIAL ONE (14:17)
--- NOTE | 2020-06-01 14:22 | RAD REPORT ---
EXAM DESCRIPTION: CT - Head Brain Wo Cont - 06/01/2020 2:17 pm CLINICAL HISTORY: HEADACHE Headache, drowsiness COMPARISON: No comparisons TECHNIQUE: All CT scans are performed using dose optimization technique as appropriate and may inclu de automated exposure control or mA/KV adjustment according to patient size. FINDINGS: No intracranial hemorrhage, hydrocephalus or extra-axial fluid collection.No areas of brai n edema or evidence of midline shift. The paranasal sinuses and mastoids are clear. The calvarium is intact. IMPRESSION: No acute intracranial abnormality.
[2020-06-01 14:33] LABS: Absolute Lymphocytes (CBC) 0.7 K/uL (0.7-4.9); Basophils % 0.2 % (0-1.3); Hematocrit 32.3 % (36.0-45.0); Lymphocytes % 11.4 % (15.3-44.8); MPV 7.6 fL (7.6-11.3); RBC Red Blood Cell Count 3.55 M/uL (3.86-4.86)
[2020-06-01 14:40] LABS: ALT/SGPT 69 U/L (12-78); AST/SGOT 33 U/L (15-37); Albumin 3.2 g/dL (3.4-5.0); Alkaline Phosphatase 63 U/L (45-117); BUN Blood Urea Nitrogen 5 mg/dL (7-18); Bicarbonate 27 mmol/L (21-32); Bilirubin Total 0.3 mg/dL (0.2-1.0); Glucose Level 97 mg/dL (74-106); Potassium 3.6 mmol/L (3.5-5.1); Protein, Total 6.8 g/dL (6.4-8.2); Sodium Level 142 mmol/L (136-145)
--- NOTE | 2020-06-01 15:33 | RAD REPORT ---
EXAM DESCRIPTION: CT - Head angio - 06/01/2020 3:25 pm CLINICAL HISTORY: HEADACHE Headache, drowsiness COMPARISON: Head Brain Wo Cont dated 06/01/2020 TECHNIQUE: CT angiography of the head was performed with MIPs. All CT scans are performed using dose optimization technique as appropriate and may include automated exposure control or mA/KV adjustment according to patient size. FINDINGS: No evidence of aneurysm is detected. No flow-limiting stenosis or vascular malformation id entified. Antegrade flow is seen in the vertebral arteries. The vertebral arteries are codominant. The visualized dural venous sinuses are patent. IMPRESSION: No significant flow abnormality is detected.
--- NOTE | 2020-06-01 15:39 | RAD REPORT ---
EXAM DESCRIPTION: CT - Soft Tissue Neck W/Contr CLINICAL HISTORY: PAIN Fever, neck pain and swelling COMPARISON: No comparisons TECHNIQUE All CT scans are performed using dose optimization technique as appropriate and may includ e automated exposure control or mA/KV adjustment according to patient size. FINDINGS: Enhancement of the nasopharyngeal mucosal surfaces seen with with enlargement of the retro pharyngeal lymph nodes up to 11 mm in short axis. Lingual tonsillar tissue is also enlarged. No perit onsillar abscess or prevertebral abscess is seen. Mildly prominent lymphadenopathy is seen in the submental and submandibular stations. Bilateral enlar ged jugulodigastric chain lymphadenopathy is also present on the left measuring 15 mm short axis and on the right measuring 11 mm in short axis. Thyroid gland is normal sized. Vocal cords are symmetric. Salivary glands are symmetric. Upper lung you are clear. Included intracranial contents are unremarkable. IMPRESSION: Inflammation or infection involving the nasopharyngeal soft tissues is present. A pharyn gitis is a possibility and may be clinically correlated. Presumed reactive lymphadenopathy is seen involving the retropharynx, submental, submandibular and bi lateral jugulodigastric chains. No prevertebral or peritonsillar abscess seen. Moderate lingual tonsillar enlargement is seen.
--- NOTE | 2020-06-01 16:10 | EDPHYS ---
Physician Documentation [facility] Name: Anne Ybarra Age: 34 yrs Sex: Female : 1985 Arrival Date: 06/01/2020 Time: 13:31 Bed 24 Private MD: ED Physician Van Sheffield HPI: 06/01 13:54 This 34 yrs old Female presents to ER via Ambulatory with complaints of jmm Headache, Neck Pain. 13:54 The patient presents with sore throat. Onset: The symptoms/episode began/occurred jmm gradually, 1 day(s) ago. Modifying factors: The symptoms are alleviated by nothing, the symptoms are aggravated by Patient's oral intake status:. Associated signs and symptoms: Pertinent positives: fever. This is a 34 year old female with ahistory of chronic kidney infections that presents to the ED with complaints of left sided neck swelling which has radiated pain into the left side of her head. Patient recently discharged from hospital with pyelonephritis and obstructive stone. . 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 - Social history:: Smoking status: Patient reports the use of cigarette tobacco products, smokes one-half pack cigarettes per day. ROS: 13:56 Cardiovascular: Negative for chest pain, palpitations, and edema, Respiratory: Negative jmm for shortness of breath, cough, wheezing, and pleuritic chest pain. 13:56 Constitutional: Positive for body aches. 13:56 ENT: Positive for sore throat. 13:56 Neuro: Positive for headache. 13:56 All other systems are negative. Exam: 13:56 Head/Face: atraumatic. Eyes: EOMI, no conjunctival erythema appreciated jmm 13:56 Cardiovascular: Regular rate and rhythm. No edema appreciated Respiratory: Normal respirations, no respiratory distress appreciated Abdomen/GI: Non distended, soft Back: Normal ROM Skin: General appearance color normal MS/ Extremity: Moves all extremities, no obvious deformities appreciated, no edema noted to the lower extremities Neuro: Awake and alert, normal gait 13:56 Constitutional: The patient appears alert, awake, anxious, uncomfortable. 13:56 ENT: Posterior pharynx: erythema, that is mild. 13:56 Neck: Lymph nodes: lymphadenopathy is appreciated, anterior cervical nodes, submandibular nodes. 13:56 Psych: Behavior/mood is anxious. Vital Signs: 13:35 BP 94 / 76; Pulse 101; Resp 18 S; Temp 97(TE); Pulse Ox 100% on R/A; Weight 54.88 kg ca1 (R); Height 5 ft. 4 in. (162.56 cm) (R); Pain 7/10; 14:21 BP 96 / 64; Pulse 81; Resp 16; Pulse Ox 100% on R/A; zb 15:00 BP 93 / 60; Pulse 70; Resp 15; Pulse Ox 100% on R/A; zb 16:00 BP 92 / 61; Pulse 83; Resp 14; Pulse Ox 100% on R/A; zb 13:35 Body Mass Index 20.77 (54.88 kg, 162.56 cm) ca1 MDM: 13:46 Patient medically screened. [facility] 16:03 Data reviewed: vital signs, nurses notes, lab test result(s). Counseling: I had a [facility] detailed discussion with the patient and/or guardian regarding: the historical points, exam findings, and any diagnostic results supporting the discharge/admit diagnosis, lab results, radiology results, the need for outpatient follow up, to return to the emergency department if symptoms worsen or persist or if there are any questions or concerns that arise at home. ED course: Patient states her headache is relieved. Patient is advised to follow up with pcp and otherwise given strict return precautions. Patient understood and agrees with the plan of care. . 06/01 13:47 Order name: CBC with Diff; Complete Time: 14:40 [facility] 06/01 13:47 Order name: CMP; Complete Time: 14:43 [facility] 06/01 13:48 Order name: [place] Screen Profile [facility] 06/01 13:48 Order name: Strep [facility] 06/01 13:49 Order name: [place] Screen; Complete Time: 14:57 [facility] 06/01 13:49 Order name: Group A Streptococcus Rapid Sc; Complete Time: 14:37 [facility] 06/01 13:48 Order name: CT Head Brain wo Cont; Complete Time: 14:23 [facility] 06/01 14:39 Order name: Throat Culture EDSD 06/01 14:40 Order name: CT Head Angio; Complete Time: 15:35 [facility] 06/01 14:40 Order name: CT Soft Tissue Neck W/contr; Complete Time: 15:42 [facility] 06/01 13:47 Order name: Saline Lock; Complete Time: 14:12 [facility] Administered Medications: 14:13 Drug: Ketorolac 30 mg Route: IVP; Site: left upper arm; zb 16:11 Follow up: Response: No adverse reaction; Marked relief of symptoms zb 14:14 Not Given (Physician Discretion): Tylenol 650 mg PO once zb 14:14 Drug: diphenhydrAMINE 25 mg Route: IVP; Site: left upper arm; zb 16:11 Follow up: Response: No adverse reaction; Marked relief of symptoms zb 14:24 Drug: NS 0.9% 1000 ml Route: IV; Rate: 1 bolus; Site: left upper arm; zb 16:12 Follow up: Response: No adverse reaction; IV Status: Completed infusion; IV Intake: zb 1000ml 14:24 Drug: Reglan 10 mg Route: IVP; Site: left upper arm; zb 16:12 Follow up: Response: No adverse reaction; Marked relief of symptoms zb 16:11 Drug: Decadron - Dexamethasone 10 mg Route: IVP; Site: left upper arm; zb 16:36 Follow up: Response: No adverse reaction; Marked relief of symptoms zb Disposition: 18:31 Co-signature as Attending Physician, Van Sheffield MD. rn Disposition: 06/01/20 16:10 Discharged to Home. Impression: Headache, Enlarged lymph nodes. - Condition is Stable. - Discharge Instructions: General Headache Without Cause, Lymphadenopathy. - Medication Reconciliation Form, Thank You Letter, Antibiotic Education, Prescription Opioid Use form. - Follow up: Private Physician; When: 2 - 3 days; Reason: Recheck today's complaints, Continuance of care, Re-evaluation by your physician. Signatures: Dispatcher [employer] [facility] Joselito Diaz PA PA Van Scott MD MD rn Acob, Cheryl, RN RN ca1 Brown, Zipporah, RN RN zbuster Corrections: (The following items were deleted from the chart) 13:56 13:54 This is a 34 year old female with ahistory of chronic kidney infections that della presents to the ED with complaints of left sided neck swelling which has radiated pain into the left side of her head. . della 16:37 16:10 06/01/2020 16:10 Discharged to Home. Impression: Headache; Enlarged lymph nodes. zb Condition is Stable. Forms are Medication Reconciliation Form, Thank You Letter, Antibiotic Education, Prescription Opioid Use. Follow up: Private Physician; When: 2 - 3 days; Reason: Recheck today's complaints, Continuance of care, Re-evaluation by your physician. della
--- NOTE | 2020-06-01 16:10 | ER ---
Nurse's Notes [facility] Name: Anne Ybarra Age: 34 yrs Sex: Female : 1985 Arrival Date: 06/01/2020 Time: 13:31 Bed 24 Private MD: Diagnosis: Headache;Enlarged lymph nodes Presentation: 06/01 13:35 Chief complaint: Patient states: Was diagnosed with kidney infection/stone 2 days ago, ca1 was given IV abx and a pill for home. Sore throat started yesterday, neck pain at this time, headache, swollen lymph nodes on the neck and fever this morning. Coronavirus screen: Client denies travel out of the [place] in the last 14 days. headache, sore throat, Client presents with at least one sign or symptom that may indicate coronavirus-19. Standard/surgical mask placed on the client. Provider contacted for isolation considerations. The client reports previous COVID testing was negative. Date of collection: May 29, 2020. Ebola Screen: Patient negative for fever greater than or equal to 101.5 degrees Fahrenheit, and additional compatible Ebola Virus Disease symptoms Patient denies exposure to infectious person. Patient denies travel to an Ebola-affected area in the 21 days before illness onset. No symptoms or risks identified at this time. Initial Sepsis Screen: Does the patient meet any 2 criteria? No. Patient's initial sepsis screen is negative. Does the patient have a suspected source of infection? No. Patient's initial sepsis screen is negative. Risk Assessment: Do you want to hurt yourself or someone else? Patient reports no desire to harm self or others. Onset of symptoms was June 01, 2020. 13:35 Method Of Arrival: Ambulatory ca1 13:35 Acuity: DIOGO 3 ca1 Triage Assessment: 14:20 Headache History: Denies prior headaches. General: Appears in no apparent distress. zb uncomfortable. 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 - Social history:: Smoking status: Patient reports the use of cigarette tobacco products, smokes one-half pack cigarettes per day. Screenin:19 Abuse screen: Denies threats or abuse. Denies injuries from another. Nutritional zb screening: No deficits noted. Tuberculosis screening: No symptoms or risk factors identified. Fall Risk None identified. Assessment: 13:44 Reassessment: ECP at bedside. zb 13:56 Reassessment: patient states that she took 2-3 tylenol and IB this afternoon about 2 zb hours ago. notified ECP. Tylenol not given. 14:14 General: Appears in no apparent distress. uncomfortable, Behavior is calm, cooperative, zb appropriate for age, Reports fever for 2-3 days, feeling ill for 2-3 days. Pain: Complains of pain in forehead, neck, right femoral area, left low back, left mid back, right mid back, right low back and abdomen Pain does not radiate. Pain currently is 3 out of 10 on a pain scale. Quality of pain is described as aching, pressure, tender, Pain began 2-3 days ago. Is continuous, Alleviated by nothing. Noted to be grimacing, Also complains of decreased appetite, labile emotions. Neuro: Level of Consciousness is awake, alert, obeys commands, Oriented to person, place, time, situation, Slag Expander are equal bilaterally Moves all extremities. Gait is steady, Speech is normal, Pupils are PERRLA, Reports headache frontal area. Cardiovascular: Reports None Heart tones S1 S2 present Capillary refill < 3 seconds Patient's skin is warm and dry. Rhythm is regular Chest pain is denied. Respiratory: Airway is patent Respiratory effort is even, unlabored, Respiratory pattern is regular, symmetrical, Breath sounds are clear bilaterally. GI: Abdomen is flat, non-distended, Bowel sounds present X 4 quads. Abdomen is tender to palpation in posterior aspect of right lateral abdomen, posterior aspect of left lateral abdomen and right lower quadrant. : Reports urgency. EENT: Oral mucosa is moist. Good dentition noted. Throat is clear Reports nasal congestion pain cevical adenopathy and neck tenderness present . Derm: Skin is intact, is healthy with good turgor, Skin is dry, Skin is normal, Skin temperature is warm. Musculoskeletal: Range of motion: intact in all extremities. 15:14 Reassessment: pain has decreased IV fluid infusing. rates pain 2/10. states she feels a zb lot better. patient is slightly drowsy. 16:15 Reassessment: Patient appears in no apparent distress at this time. Patient and/or zb family updated on plan of care and expected duration. Pain level reassessed. Patient is alert, oriented x 3, equal unlabored respirations, skin warm/dry/pink. D/C pending completion of medications. Urine sample will be obtained. Vital Signs: 13:35 BP 94 / 76; Pulse 101; Resp 18 S; Temp 97(TE); Pulse Ox 100% on R/A; Weight 54.88 kg ca1 (R); Height 5 ft. 4 in. (162.56 cm) (R); Pain 7/10; 14:21 BP 96 / 64; Pulse 81; Resp 16; Pulse Ox 100% on R/A; zb 15:00 BP 93 / 60; Pulse 70; Resp 15; Pulse Ox 100% on R/A; zb 16:00 BP 92 / 61; Pulse 83; Resp 14; Pulse Ox 100% on R/A; zb 13:35 Body Mass Index 20.77 (54.88 kg, 162.56 cm) ca1 ED Course: 13:31 Patient arrived in ED. ds1 13:38 Triage completed. ca1 13:39 Arm band placed on right wrist. ca1 13:41 Joselito Diaz PA is PHCP. jmm 13:41 Van Sheffield MD is Attending Physician. jmm 13:44 Laurie Bucknre, HSEBA is Primary Nurse. zb 14:12 Strep Sent. dh4 14:12 Inserted saline lock: 20 gauge in left ,using aseptic technique. bicep. dh4 14:17 CT Head Brain wo Cont In Process Unspecified. EDMS 14:19 Patient has correct armband on for positive identification. Pulse ox on. NIBP on. Door zb closed. Noise minimized. Warm blanket given. 15:25 CT Head Angio In Process Unspecified. EDMS 15:26 CT Soft Tissue Neck W/contr In Process Unspecified. EDMS 16:36 No provider procedures requiring assistance completed. IV discontinued, intact, zb bleeding controlled, No redness/swelling at site. Pressure dressing applied. Administered Medications: 14:13 Drug: Ketorolac 30 mg Route: IVP; Site: left upper arm; zb 16:11 Follow up: Response: No adverse reaction; Marked relief of symptoms zb 14:14 Not Given (Physician Discretion): Tylenol 650 mg PO once zb 14:14 Drug: diphenhydrAMINE 25 mg Route: IVP; Site: left upper arm; zb 16:11 Follow up: Response: No adverse reaction; Marked relief of symptoms zb 14:24 Drug: NS 0.9% 1000 ml Route: IV; Rate: 1 bolus; Site: left upper arm; zb 16:12 Follow up: Response: No adverse reaction; IV Status: Completed infusion; IV Intake: zb 1000ml 14:24 Drug: Reglan 10 mg Route: IVP; Site: left upper arm; zb 16:12 Follow up: Response: No adverse reaction; Marked relief of symptoms zb 16:11 Drug: Decadron - Dexamethasone 10 mg Route: IVP; Site: left upper arm; zb 16:36 Follow up: Response: No adverse reaction; Marked relief of symptoms zb Intake: 16:12 IV: 1000ml; Total: 1000ml. zb Outcome: 16:10 Discharge ordered by . della 16:36 Discharged to home ambulatory. zb 16:36 Condition: stable 16:36 Discharge instructions given to patient, Instructed on discharge instructions, follow up and referral plans. Demonstrated understanding of instructions, follow-up care. 16:37 Patient left the ED. zb Signatures: Dispatcher [employer] EDJoselito Brandt PA PA jmm Sanford, Demi ds1 Hilda Malagon RN RN [facility] Prabhu Roberto 4 Laurie Buckner RN RN zbuster
[2020-06-01] MEDS ORDERED: NA CHLORIDE 0.9% 50 ML ONE (16:26)
[2020-06-01] MEDS ORDERED: dexAMETHasone 10 MG/ML VIAL ONE (16:26)
== END 2020-06-01 16:37 | disposition home or self-care (01) ==
LOC: ER 13:28
DX: R59.9 Enlarged lymph nodes, unspecified (principal); F17.210 Nicotine dependence, cigarettes, uncomplicated; Z88.1 Allergy status to other antibiotic agents; Z91.040 Latex allergy status; Z91.048 Other nonmedicinal substance allergy status
CPT/HCPCS: 96361; 87070; 85025; 36415; 86308; 87081; 80053; 70450; 70491; 70496; 96375; 96374; 99284; Q9967; J2765; J1200; J1100; J7030

== ENCOUNTER 2022-02-11 06:05 | Day surgery (SDC) | payer OTHER ==
[2022-02-11] MEDS ORDERED: Ringers Lactate 1,000 ML IV ONE (06:11)
[2022-02-11] MEDS ORDERED: OXYMETAZOLINE HCL 0.05% 15ML NAS ONE ×2 (06:11→07:00)
[2022-02-11] MEDS ORDERED: ROCURONIUM 50 MG/5 ML VIAL IV ONE (06:45)
[2022-02-11] MEDS ORDERED: propofoL 200 MG/20 ML VIAL IV ONE (06:45)
[2022-02-11] MEDS ORDERED: MIDAZOLAM HCL 2 MG/2 ML INJ ONE (06:45)
[2022-02-11] MEDS ORDERED: FENTANYL CITR 100 MCG/2 ML ONE (06:45)
[2022-02-11] MEDS ORDERED: dexAMETHasone 10 MG/ML VIAL ONE (06:46)
[2022-02-11] MEDS ORDERED: LIDOCAINE 2% MPF 5 ML VIAL ONE (06:46)
[2022-02-11] MEDS ORDERED: ONDANSETRON 4 MG/2 ML VIAL ONE ×3 (06:46→09:57)
[2022-02-11] MEDS ORDERED: SCOPOLAMINE HYDROBROMIDE PATCH TD ONE (07:00)
[2022-02-11] MEDS ORDERED: ACETAMINOPHEN 500 MG TAB ONE (07:23)
[2022-02-11] MEDS ORDERED: CELECOXIB 100 MG CAPSULE ONE (07:24)
[2022-02-11] MEDS ORDERED: LIDOCAINE 1.5% W/EPI AMP 5 ML ONE (07:45)
[2022-02-11] MEDS ORDERED: NA CHLORIDE 0.9% 500 ML ONE ×2 (08:21→10:05)
[2022-02-11] MEDS ORDERED: KETOROLAC 30 MG/ML INJ ONE (09:21)
[2022-02-11] MEDS ORDERED: MORPHINE 10 MG/ML VIAL ONE (09:28)
[2022-02-11 09:44] VITALS: O2SAT 100
--- NOTE | 2022-02-11 09:57 | P.OP ---
Date of Service: 02/11/22 Preoperative Diagnosis: Chronic maxillary sinusitis, chronic ethmoid sinusitis, chronic frontal sinusitis , elmira bullosa, Postoperative diagnosis: Same Procedure: Nasal endoscopy with right maxillary antrostomy, right anterior ethmoidectomy, and right frontal sinusotomy with left elmira bullosa resection. CT extradural intraoperative navigation for evaluation and confirmation with dissection along the lamina and anterior skull base. Surgeon: Glenis Mackenzie MD [employer] Cook: None Indication for procedure: The patient presented with odontogenic infection and nasal obstruction despite maximal medical therapy. After extraction of the tooth by her dentist, she remained clinically symptomatic with significant right-sided facial pain, foul odor and postnasal drainage. The use of image guidance was necessary due to the anticipated degree of inflammation and anticipation of increased bleeding which may obscure visualization within the surgical field. The risks, benefits, and alternatives to surgical procedure were discussed with the patient and/or family and they agreed to proceed. Surgical findings: Large left elmira bullosa. Septal deviation with out impedance of surgical plan. Significant inflammation of right sinuses with pus within the ethmoid and maxillary sinus IV Fluids: Crystalloid, 800ml Implants/Packing: Propel contour to right frontal and right maxillary openings. Posisep to bilateral middle meatus Estimated Blood Loss: 50ml Complications: None Description of procedure in detail: The patient was brought to the operating room. They were placed under general anesthesia via oral endotracheal tube. The head of bed was turned 90 degrees. The nasal hairs were trimmed. The nasal cavity was examined with the nasal speculum and headlight with the following findings: By anterior endoscopy, the upper right septum was deviated narrowing the nasal cavity. The right septal spur was notable.. The nasal cavity was packed with Afrin-soaked pledgets in preparation for the procedure. The patient was draped in a standard fashion for nasal surgery. Based on the surgical plan and preoperative findings, intraoperative CT navigation was required. The preoperative CT scan was loaded into the Sitestar device. The registration dongle was applied with adhesive to the patient's forehead. The electromagnetic device was secured to the operating room bed and evaluation to limit interference was confirmed. The registration handpiece was used to perform patient registration in accordance with manufacturing assistant's instructions including tracing over the course of the external nose and bilateral forehead and cheeks. Accuracy of the registration was confirmed with [id number] matching at the base of the columella, the radix, and the bilateral medial and lateral canthi. Accuracy was felt to be very good. A 0 degree endoscope was then used to perform a nasal endoscopy with notable findings of widened left middle turbinate consistent with elmira. Right middle meatus with significant mucosal edema and purulence flowing posteriorly to the nasopharynx. Photo documentation was obtained. The sickle knife and endoscopic scissors were used to incise through the inferior and anterior portion of the left middle turbinate. The endoscopic scissors and 45 degree through-cutting Blakesley was used to divide along the posterior portion and the lateral aspect of the contra was removed. The straight and 45 degree Blakesley's were used to refine the edges and the middle meatus was packed with Afrin-soaked pledgets to aid in hemostasis. The middle turbinate on the right side was carefully medialized. There was significant inflammation and friability of the mucosa with pus coming from the ethmoids. The small backbiter and 90 degree Blakesley were used to remove the uncinate process resulting in significant purulence and moderate bleeding pouring from the maxillary antrostomy. The area was packed with Afrin-soaked pledgets for several minutes, after removal the antrostomy was refined by removal of bony fragments. The 30 degree endoscope was used to visualize the an trostomy and curved suction was used to forcefully irrigate the sinus from residual purulent debris. The precision pointer was used to carefully explore the area around the ethmoid bulla. The image guidance assisted in planning and confirmation of initial incision. The 45 degree Blakesley was used to enter and remove fragments of the ethmoid bulla and other bony fragments from the anterior ethmoid cells. Significant purulence was noted and the mucosa was very inflamed. The area was packed with Afrin-soaked pledgets to aid in hemostasis and visualization. After removal the precision pointer was used to guide further dissection along the lamina in order to protect the orbit. Further discussion was carried up anteriorly and superiorly towards the skull base and frontal recess. The pos terior attachment of the middle turbinate was not violated. The 70 degree endoscope and curved front to back and side to side giraffe forceps were used to remove fragments of bone and inflamed tissue from the frontal recess. The mucosa of the frontal sinus was moderately inflamed with polypoid appearing tissue though no meredith polyps were noted. I suspect this is primarily a reactive process rather than a true diagnosis of nasal polyps. After adequate dissection and assurance of hemostasis, a propel contour steroid eluding stent was placed under endoscopic guidance to the right frontal recess in order to reduce the risk of stenosis and to provide drug delivery to decrease swelling in this area. A propel contour stent was also placed within the right maxillary antrostomy for similar purpose. A Posisep hemostatic dressing was divided and a portion was placed into the right and left middle meatus and thoroughly soaked with saline. The 0 degree endoscope was then used to inspect the area including suctioning of the nasopharynx. There was no evidence of residual oozing. The procedure was concluded and the patient was returned to anesthesia for awakening and extubation in the operating room At the conclusion of the procedure, all pledget counts were confirmed correct. The patient was returned to care of anesthesia for awakening extubation in the operating room which proceeded without difficulty. The patient was transported to the recovery room and will be discharged home later today in the care of their family. The patient is given written and verbal instructions regarding the importance of saline irrigations and nasal precautions.
[2022-02-11] MEDS: MEPERIDINE HCL 25 MG/ML SYR ONE ×2 (10:01→10:20)
[2022-02-11] MEDS: HYDROMORPHONE HCL 1 MG/ML INJ ONE ×2 (10:06→10:14)
[2022-02-11 13:17] VITALS: BP 108/55; TEMP 97.4
== END 2022-02-11 11:21 | disposition home or self-care (01) ==
LOC: OR 06:05
PROVIDERS: ATTEND Otolaryngology
PROC: 099Q8ZZ Drainage of Right Maxillary Sinus, Via Natural or Artificial Opening Endoscopic (ICD-10-PCS; 2022-02-11)
PROC: 09BS8ZZ Excision of Right Frontal Sinus, Via Natural or Artificial Opening Endoscopic (ICD-10-PCS; 2022-02-11)
PROC: 09TL8ZZ Resection of Nasal Turbinate, Via Natural or Artificial Opening Endoscopic (ICD-10-PCS; 2022-02-11)
PROC: 8E09XBZ Computer Assisted Procedure of Head and Neck Region (ICD-10-PCS; principal; 2022-02-11 07:45)
DX: J32.0 Chronic maxillary sinusitis (principal); J34.89 Other specified disorders of nose and nasal sinuses
CPT/HCPCS: 87070; 87205 ×2; 87184; 88305; 88311; 87075; 31256; 31254; 61782; 31240; J2704; J2001; J2250; J3010; J1100; J2175; J1170; J7120; J7040 ×2; J2405 ×3